=== PATIENT | male | born 1965 | race Caucasian/White ===

== ENCOUNTER → 2023-09-08 | Outpatient (CLI) | payer OTHER ==
--- NOTE | 2023-09-08 15:38 | P.SLEEP ---
History of Present Illness H&P Date: 09/08/23 This is a 58-year-old patient with known history obstructive sleep apnea. The patient was diagnosed having FLAVIO back in 2016 and the patient is utilizing his CPAP unit since then. Noted at that time, the patient is to weigh around 201 pounds and the patient's AHI was 33 consistent with severe FLAVIO. Over the past 8 years, the patient has utilized his machine effectively and his been extremely compliant. His been using the machine every night and his overall compliancy was in order of 100%. Is averaging on January the hours of CPAP use per night. No leaks around the mask and his AHI is down to 0.7 while on treatment. His current weight is up to 222. No snoring while on treatment. No hypersomnia or sleepiness. He goes to bed around 10 PM, wakes up 8 AM in the morning and does not take any naps during the day. His current Ethel score is at 7. Is sleeping on his side. He is very much interested in updating his CPAP machine. His current machine is malfunctioning and his become very nauseated succeeded is overall motor likes pain. The patient is using his simplus medium-sized f ullface mask. No other new onset comorbidities or cardiac vascular complications over the past 7-8 years. Review of Systems Constitutional: Denies chills, Denies fever Eyes: denies as per HPI, denies blurred vision, denies bulging eye, denies decreased vision, denies diplopia, denies discharge, denies dry eye, denies irritation, denies itching, denies pain, denies photophobia, denies loss of peripheral vision, denies loss of vision, denies tunnel vision/blind spots Ears: deny: decreased hearing, ear discharge, earache, tinnitus Ears, nose, mouth and throat: Reports as per HPI Breasts: absent: as per HPI, gynecomastia Cardiovascular: Reports as per HPI Respiratory: Reports sleep apnea Gastrointestinal: Reports as per HPI Genitourinary: Reports as per HPI Musculoskeletal: Reports as per HPI Musculoskeletal: absent: ankle pain, ankle stiffness, ankle swelling, as per HPI, elbow pain, elbow stiffness, elbow swelling, foot pain, foot stiffness, foot swelling, hand pain, hand stiffness, hand swelling, hip pain, hip stiffness, hip swelling, knee pain, knee stiffness, knee swelling, shoulder pain, shoulder stiffness, shoulder swelling, wrist pain, wrist stiffness, wrist swelling Integumentary: Reports as per HPI Neurological: Reports as per HPI Psychiatric: Reports as per HPI Endocrine: Reports as per HPI Hematologic/Lymphatic: Reports as per HPI Allergic/Immunologic: Reports as per HPI Past Medical History Past Medical History: Hyperlipidemia, Hypertension, Sleep Apnea/CPAP/BIPAP Past Surgical History: Orthopedic Surgery (Arthroscopic knee surgery, hemorrhoid resection) Past Anesthesia/Blood Transfusion Reactions: No Reported Reaction Smoking Status: Former smoker Past Alcohol Use History: None Reported Past Drug Use History: None Reported Medications and Allergies Home Medications and Allergies Comment(s): Bisoprolol 6.25 mg by mouth daily and pravastatin 20 mg by mouth daily Physical Exam BP is 124/84, pulse is 59, respirations 12, temperature is 97.9, BMI 33.2, his weight is 222, size of the neck is 18.5 inches, Ethel score is at 7 The patient appeared well nourished and normally developed. Vital signs as documented. Head exam is unremarkable. No scleral icterus or corneal arcus noted. Neck is without jugular venous distension, thyromegaly, or carotid bruits. Carotid upstrokes are brisk bilaterally. Lungs are clear to auscultation and percussion. Cardiac exam reveals the PMI to be normally sized and situated. Rhythm is regular. First and second heart sounds normal. No murmurs, rubs or gallops. Abdominal exam reveals normal bowel sounds, no masses, no organomegaly and no aortic enlargement. Extremities are nonedematous and both femoral and pedal pulses are normal.Examination of the skin revealed no evidence of significant rashes, suspicious appearing nevi or other concerning lesions.Neurologically, the patient is awake and alert and the patient does not have any focal neurological deficit. Cranial nerves are essentially intact. Assessment and Plan Plan: Obstructive sleep apnea, COPD, with an AHI of 33 diagnosed back in 2016, currently on CPAP pressure of 18 cm of water Successful CPAP therapy over the past 7-8 years without any major hypersomnia or sleepiness and excellent compliancy Hypertension Hyperlipidemia Hypersomnia, recovered Plan The patient is a need for any CPAP unit. I'm going to order for him and he will generation ResMed 11 and is off the sedatives a pressure of 18 centimeters of water. Obesity given the same mask interface. Encourage weight loss Seen back and 30-90 days after obtaining new CPAP unit for another compliancy check. Treatment has been successful and there is no need to repeat any of his sleep studies at this point in time. Sleep Note - Sleep Note Sleep Note: Temperature: Pulse Rate: Respiratory Rate: Blood Pressure: SpO2: Height: Weight: BMI: Neck Circumference:
== END ==
LOC: 3 N SLEEP 14:22
PROVIDERS: ATTEND Internal Medicine Critical Care Medicine
DX: G47.33 Obstructive sleep apnea (adult) (pediatric) (principal); J44.9 Chronic obstructive pulmonary disease, unspecified; E78.5 Hyperlipidemia, unspecified; I10 Essential (primary) hypertension; Z99.89 Dependence on other enabling machines and devices; Z87.891 Personal history of nicotine dependence
CPT/HCPCS: 99211

== ENCOUNTER → 2024-09-01 | Outpatient (CLI) | payer OTHER ==
--- NOTE | 2024-09-01 14:26 | XR ---
EXAMINATION TYPE: XR lumbar spine 2 or 3V DATE OF EXAM: 09/01/2024 1:57 PM COMPARISON: None CLINICAL INDICATION: Male, 59 years old with history of M54.5, M54.6; [facility] TECHNIQUE: XR lumbar spine 2 or 3V - Frontal, lateral and coned in L5-S1 lateral views of the spine. FINDINGS: No evidence of any acute osseous pathology. No evidence of loss of vertebral body height i s seen. There is normal alignment of the lumbar vertebral bodies. Scattered disc space narrowing. Mul tilevel marginal osteophyte formation throughout the visualized spine. There is facet joint arthropat hy throughout the spine. Scattered at least mild neural foraminal stenosis. Atherosclerosis of the va sculature. IMPRESSION: 1. No acute fracture. 2. Mild to moderate multilevel disc degeneration. [facility], , 09/01/2024 2:24 PM
--- NOTE | 2024-09-01 15:25 | XR ---
EXAMINATION TYPE: XR thoracic spine complete DATE OF EXAM: 09/01/2024 1:57 PM COMPARISON: None CLINICAL INDICATION: Male, 59 years old with history of M54.5, M54.6; [facility] TECHNIQUE: XR thoracic spine complete views of the spine in Frontal and lateral projections. FINDINGS: No evidence of acute fracture. There is scattered multilevel disk space narrowing without loss of ve rtebral body height. There is normal alignment of the thoracic vertebral bodies. Scattered osteophyte formation along the anterior and lateral aspects of the vertebral bodies. Neural foramen are patent given limitations of this exam. Spinal canal appears patent. Low lung volumes with atelectasis change . IMPRESSION: 1. No acute osseous pathology. 2. [id number] multilevel degeneration changes of the spine. [facility], , 09/01/2024 3:23 PM
== END | disposition home or self-care (01) ==
LOC: RADXRMAIN 13:25
PROVIDERS: ATTEND Family Medicine
DX: M51.360 Other intervertebral disc degeneration, lumbar region with discogenic back pain only (principal); M51.34 Other intervertebral disc degeneration, thoracic region
CPT/HCPCS: 72072; 72100